=== PATIENT | male | born 2000 | race Caucasian/White ===

== ENCOUNTER 2024-02-23 20:44 | Emergency (ER) | payer OTHER, SELFPAY ==
[2024-02-23 20:48] VITALS: BP 155/95
[2024-02-23] MEDS: ADACEL 0.5 ML IM (21:48)
--- NOTE | 2024-02-23 22:00 | ED.GENMED ---
History of Present Illness
General
Chief Complaint: Musculo-Skeletal Complaint
Source: patient
Exam Limitations: none
Time Seen by Provider: 02/23/24 21:13
Nursing documentation reviewed up to this point in time: agreed with
History of Present Illness
History of Present Illness:
23-year-old male presenting from [facility] after slipping the shower landing on his left pinky finger causing deformity as well as sustaining laceration to the right scalp. Bleeding controlled at this point he was given updated tetanus
shot did not lose consciousness not on blood thinners no neck pain no numbness weakness nausea vomiting. Mainly concerned with discomfort to his left pinky finger otherwise no concerns.
Review of Systems
Review of Systems
Allergies reviewed?: Yes
All Other Systems: ROS reviewed and negative except as documented in HPI and ROS
Phy Exam
Physical Exam
Physical Exam:
GENERAL: Alert , in no apparent distress
EYE: pupils equal and reactive
NECK: Supple, no significant adenopathy.
ENT: 1 cm very superficial laceration to the right parietal scalp with no active bleeding no foreign bodies o/p clr, mmm.
CARDIAC: Regular rate and rhythm .
LUNGS: Clear breath sounds bilaterally, no acute respiratory distress, no wheezes/rales/rhonchi
ABDOMEN: Soft, without focal tenderness, no r/g, no cvat
NEUROLOGICAL: Alert and oriented, no focal neuro deficits
SKIN: Warm and dry, skin intact.
MUSCULOSKELETAL: Deformity and edema to the left pinky finger, well perfused.
PSYCH: Normal and appropriate interaction.
Course
Orders/Labs/Results
Orders:
Orders
02/23/24 20:52
Finger(s)/Thumb 2 View Lt [CR Finger(s)/thumb Min 2 Vw Lt] Urgent
Comment:
Reason For Exam: fall, left pinky pain/swelling
Indicate Which Finger:: Little Finger
02/23/24 21:36
CR Hand - Left 2 Views Urgent
Comment:
Reason For Exam: pinky finger post reductoin
02/23/24 21:37
Tetanus/Diphth/Acelpertussis [Adacel] 0.5 ml IM .ONCE ONE
Vital Signs
Initial and Last Documented VS:
Initial Vital Signs
Temp Pulse Resp BP Pulse Ox
99.1 F 93 18 155/95 98
02/23/24 20:48 02/23/24 20:48 02/23/24 20:48 02/23/24 20:48 02/23/24 20:48
Last Documented Vital Signs
Temp Pulse Resp BP Pulse Ox
99.1 F 93 18 155/95 98
02/23/24 20:48 02/23/24 20:48 02/23/24 20:48 02/23/24 20:48 02/23/24 20:48
Procedures
Joint/Fracture Reduction
Left Fifth Finger:
Indication for procedure:: finger dislocation
Procedure completed by: Myself
Consent form signed: No
If no, reason: Emergency procedure (Verbal consent )
Joint reduced: without anesthesia (Digital block)
Anesthesia/sedation: 1% Lidocaine and Regional block
Injury was: closed
Further treatement: needs further treatment
Post reduction exam: stable
Capillary Refill: normal
Normal distal neurovascular exam?: Yes
MDM/Problems Addressed
MDM/Problems Addressed:
23-year-old male presenting to the emergency department today with concerns of left-sided pinky finger injury after slipping in the shower. There is visible deformity and was found to have a dorsal dislocation of the PIP. Also has a small
superficial laceration to the right parietal scalp. Finger was reduced after given a digital block. Then was splinted with a finger splint. X-ray confirming successful reduction otherwise stable for outpatient follow-up return precautions given.
*Critical Care Note
Total Time (30-74mins, 75-104mins- exclusive of procedures): Not Applicable
ED Attending Note
-
Portions of this chart may have been created with voice recognition software.� Occasional wrong word or��sound alike� substitutions may have occurred due to the inherent limitations of voice recognition software.
Discharge Plan
Departure
Patient Disposition: Home (Routine Discharge)
Date of Disposition: 02/23/24
Time of Disposition: 22:53
Patient with high blood pressure during this ER visit?: No
Condition: Good
Covid-19: Not Applicable
Discharge Problem:
Dislocated finger
Instructions: Finger Dislocation (DC)
Referrals:
NONE,* [Family Provider] -
Jesus Mazariegos MD [Active] - Follow up in 5-7 days
Activity Restrictions/Additional Instructions:
You came to the emergency department today with concerns of a finger dislocation. This was reduced here. Please leave the splint in place until orthopedic follow-up in 1 to 2 weeks. Otherwise you have a small cut to your scalp. Please keep the
area clean. Return for any worsening, new or concerning symptoms.
Interventions
Interventions:
*Risk Screen - Suicide Last Done: 02/23/24 21:15
*Neglect/Abuse Screening Last Done: 02/23/24 21:15
ED- Fall Risk Assessment Last Done: 02/23/24 21:15
*ED COVID-19 Vaccine History Last Done: 02/23/24 21:15
ED-Musculoskeletal Assessment Last Done: 02/23/24 21:15
Discharge Date and Time
Print Language: SLOVAK
== END 2024-02-23 23:10 | disposition home or self-care (01) ==
LOC: EMR 20:44
PROVIDERS: EMERGENCY PHYSICIAN Emergency Medicine
DX: S63.257A Unspecified dislocation of left little finger, initial encounter (principal); S01.01XA Laceration without foreign body of scalp, initial encounter; W18.2XXA Fall in (into) shower or empty bathtub, initial encounter; Y93.E1 Activity, personal bathing and showering; Y92.149 Unspecified place in prison as the place of occurrence of the external cause; Z23 Encounter for immunization; G43.909 Migraine, unspecified, not intractable, without status migrainosus
CPT/HCPCS: 64450; 99284; 26700; 90471; 73120; 73140; 90715